=== PATIENT | male | born 1980 | race Caucasian/White ===

== ENCOUNTER → 2025-08-17 | Outpatient (REF) | payer OTHER ==
[2025-08-17 13:22] LABS: FREE T4 1.06 NG/DL (0.89-1.76)
[2025-08-17 13:44] LABS: ESTIMATED AVERAGE GLUCOSE 85.0 MG/DL (60-110); INR 1.32
[2025-08-17 13:55] LABS: HEPATITIS C VIRUS ABY INDEX 0.05 INDEX (<0.8)
[2025-08-17 13:59] LABS: ALT/SGPT 52 U/L (7.0-40); AST/SGOT 89 U/L (<34); CALCIUM LEVEL 8.5 MG/DL (8.5-10.1); CARBON DIOXIDE LEVEL 27 MMOL/L (20-31); CHLORIDE LEVEL 108 MMOL/L (98-107); CHOLESTEROL LEVEL 181 MG/DL (<200); CHOLESTEROL RISK RATIO 5.62 (<5); CREATININE FOR GFR 0.66 MG/DL (0.70-1.30); GLOMERULAR FILTRATION RATE > 90.0 (>60); LDL CHOLESTEROL 130.8 MG/DL (<100); NON-HDL-C 148.8 MG/DL; POTASSIUM SERUM 3.5 MMOL/L (3.5-5.1); SODIUM LEVEL 144 MMOL/L (136-145); TRIGLYCERIDES LEVEL 90 MG/DL (<150)
[2025-08-17 14:11] LABS: PLATELET COUNT, AUTOMATED 57 10^3/uL (150-450)
== END ==
LOC: M SFHCADAM 08:26
PROVIDERS: ATTEND Family Medicine
DX: K76.0 Fatty (change of) liver, not elsewhere classified (principal); I10 Essential (primary) hypertension; F10.11 Alcohol abuse, in remission; R79.89 Other specified abnormal findings of blood chemistry

== ENCOUNTER → 2025-08-22 | Outpatient (REF) | payer OTHER ==
[2025-08-22 18:34] LABS: BASO # 0.0 10^3/uL (0.0-0.2); BASO % 0.8 % (0.0-1.0); EOS # 0.1 10^3/uL (0.0-0.5); EOS % 2.4 % (0.0-3.0); LYMPH # 1.2 10^3/uL (1.5-5.0); LYMPH % 32.3 % (24.0-44.0); MONO # 0.4 10^3/uL (0.0-0.8); MONO % 9.9 % (2.0-8.0); NEUTROPHILS # 2.0 10^3/uL (1.5-8.5); NEUTROPHILS % 54.3 % (36.0-66.0); PLATELET COUNT, AUTOMATED 51 10^3/uL (150-450)
[2025-08-22 18:36] LABS: ALT/SGPT 47 U/L (7.0-40); AST/SGOT 77 U/L (<34); CALCIUM LEVEL 8.6 MG/DL (8.5-10.1); CARBON DIOXIDE LEVEL 26 MMOL/L (20-31); CHLORIDE LEVEL 108 MMOL/L (98-107); CREATININE FOR GFR 0.67 MG/DL (0.70-1.30); GLOMERULAR FILTRATION RATE > 90.0 (>60); POTASSIUM SERUM 3.3 MMOL/L (3.5-5.1); SODIUM LEVEL 143 MMOL/L (136-145)
[2025-08-25 09:57] LABS: CERULOPLASMIN 20.0 mg/dL (14-30)
[2025-08-29 00:03] LABS: ANTI-MITOCHONDRIAL ANTIBODY Negative (Negative)
== END ==
LOC: M SFHCADAM 14:34
PROVIDERS: ATTEND Family Medicine
DX: K74.69 Other cirrhosis of liver (principal)

== ENCOUNTER → 2025-09-13 | Outpatient (CLI) | payer OTHER | LOC: M RAD 06:55 | PROVIDERS: ATTEND Family Medicine | DX: K76.0 Fatty (change of) liver, not elsewhere classified (principal); R79.89 Other specified abnormal findings of blood chemistry ==